=== PATIENT | male | born 1990 | race Caucasian/White ===

== ENCOUNTER 2022-12-14 04:19 | Emergency (ER) | payer BC, SELFPAY ==
[2022-12-14 04:35] VITALS: BP 137/83; PULSE 60; RESP 16; TEMP 36.6; O2SAT 100; BMI 38.4
--- NOTE | 2022-12-14 04:54 | CTR_ITS ---
PROCEDURE INFORMATION: Exam: CT Abdomen And Pelvis Without Contrast Exam date and time: 12/14/2022 5:06 AM Age: 32 years old Clinical indication: Abdominal pain; Localized; Right; Patient HX: C/O RT sided abd pain. ; Additional info: Right side pain TECHNIQUE: Imaging protocol: Computed tomography of the abdomen and pelvis without contrast. Radiation optimization: All CT scans at this facility use at least one of these dose optimization techniques: automated exposure control; mA and/or kV adjustment per patient size (includes targeted exams where dose is matched to clinical indication); or iterative reconstruction. REPORTING DATA: Count of CT and Cardiac NM exams in prior 12 months: This patient has received 0 known CTs and 0 known cardiac nuclear medicine studies in the 12 months prior to the current study. COMPARISON: No relevant prior studies available. RADIATION DOSE METRICS: Total DLP (mGy-cm): 1079.93 FINDINGS: Inferior thorax: No acute airspace or pleural disease. Asymmetric elevation of the right hemidiaphragm. Liver: Fatty infiltration of the liver. Gallbladder and bile ducts: Unremarkable gallbladder. Pancreas: No pancreatic mass or ductal dilatation. Spleen: Enlarged spleen measuring 12.4 cm in length. Accessory spleens. Adrenal glands: Unremarkable adrenals. Kidneys and ureters: Normal renal morphology. No hydronephrosis. Stomach and bowel: Prominent stool and diverticula, without pericolonic inflammation. Appendix: No acute appendicitis. Intraperitoneal space: No free fluid. Vasculature: Normal caliber of the abdominal aorta. Lymph nodes: Subcentimeter lymph nodes. Urinary bladder: Nondistended bladder with mild wall thickening. Reproductive: Unremarkable as visualized. Bones/joints: L5 spondylolysis. Schmorl's nodes and mild degenerative change. Soft tissues: Small umbilical hernia. CT/CT abdomen pelvis wo con [id number] IMPRESSION: 1. No acute inflammatory process in the abdomen or pelvis. 2. Additional findings as described above.
--- NOTE | 2022-12-14 04:54 | W.ED.ABDPA2 ---
HPI - Abdominal Pain General: Chief Complaint: Abdominal Pain Stated Complaint: abd pain Time Seen by Provider: 12/14/22 04:20 Source: patient Mode of arrival: ambulatory Limitations: no limitations History of Present Illness: 32-year-old male states he woke up this morning with a sharp right-sided flank and right-sided abdominal pain states the pain started roughly 2 to 3 AM he states pain is currently 7 out of 10 denies any vomiting denies any diarrhea denies any fever denies any dysuria he had history constipation but he states he had a bowel movement yesterday. Associated Symptoms: Denies chills and fever(s) Review of Systems Const: Denies: fever(s), chills, body aches or change in appetite Eyes: Denies: blurry vision or eye discomfort ENMT: Denies: throat pain or dental pain Card: Denies: chest pain Resp: Denies: dyspnea GI: Reports: abdominal pain : Reports: flank pain Musc: Denies: neck pain or back pain Skin/Breast: Denies: rash Neuro: Denies: headache(s) Psych: Denies: depression Poncho/Lymph: Denies: easy bruising All/Imm: Denies: urticaria PFSH ED PFSH: Medical History (Updated 12/14/22 @ 05:52 by Antione Alvares MD) No pertinent past medical history Social History (Updated 12/14/22 @ 04:56 by Antione Alvares MD) Substance/Drug Use: never Physical Exam Const: COMMON NORMALS: no acute distress, patient oriented x3 and healthy appearing HENMT: COMMON NORMALS: normocephalic and atraumatic HEAD & SCALP: normocephalic and atraumatic Eye: COMMON NORMALS: Equal, round and reactive pupils present and EOMs intact bilaterally PUPIL: Yes Equal, round and reactive pupils present Neck/C-Spine: COMMON NORMALS: full ROM and supple Chest: COMMONS NORMALS: normal inspection of the chest and normal palpation of entire chest wall Resp: COMMON NORMALS: normal respiratory effort, No retractions, No use of accessory muscles and clear to auscultation bilaterally AUSCULTATION: clear to auscultation bilaterally Cardio: COMMON NORMALS: regular rate, regular rhythm and No murmurs present (Cardio) RATE: regular rate RHYTHM: regular rhythm GI: COMMON NORMALS: Normal to inspection, nondistended, normoactive bowel sounds present, Soft to palpation, non-tender and no masses PALPATION: Yes Soft to palpation Extremity: COMMON NORMALS: normal to inspection and full ROM Neuro: COMMON NORMALS: patient oriented x3, moves all extremities and no focal motor deficits Psych: COMMON NORMALS: mental status grossly normal, Normal thought process present and cooperative THOUGHT PROCESS: Normal thought process present Skin: COMMON NORMALS: no rashes or lesions noted and no wounds GENERAL SKIN EXAM: no rashes or lesions noted Course Vital Signs: Vital signs: Vital Signs Temperature 97.9 F 12/14/22 04:35 Pulse Rate 60 12/14/22 04:35 Respiratory Rate 16 12/14/22 04:55 Blood Pressure 137/83 12/14/22 04:35 Pulse Oximetry 98 12/14/22 04:55 Oxygen Delivery Me thod 12/14/22 04:55 MDM - Abdominal Pain Medical Decision Making Patient presents here with abdominal pain he is well-appearing here CT scan blood works all normal he has had no dysuria his exam at discharge is benign he is to follow-up with PCP and return if worsening Lab Data 12/14/22 04:55 12/14/22 04:55 Labs/Radiology: Radiology Impressions Abdomen/Pelvis CT 12/14/22 04:54 IMPRESSION: 1. No acute inflammatory process in the abdomen or pelvis. 2. Additional findings as described above. Laboratory Results WBC 7.2 10^3/uL (4.0-10.0) 12/14/22 04:55 RBC 5.12 10^6/uL (4.1-5.3) 12/14/22 04:55 Hgb 15.0 g/dL (11.7-16.6) 12/14/22 04:55 Hct 45.5 % (42.0-52.0) 12/14/22 04:55 MCV 88.9 fl (80-94) 12/14/22 04:55 MCH 29.3 pg (28.0-34.0) 12/14/22 04:55 MCHC 33.0 g/dL (30.0-36.0) 12/14/22 04:55 RDW 12.5 % (12.1-15.1) 12/14/22 04:55 Plt Count 261 10^3/cmm (130-400) 12/14/22 04:55 MPV 10.0 fL (7.4-10.4) 12/14/22 04:55 Neut % (Auto) 68.9 % 12/14/22 04:55 Lymph % (Auto) 21.8 % 12/14/22 04:55 Scurry % (Auto) 6.7 % 12/14/22 04:55 Eos % (Auto) 1.7 % 12/14/22 04:55 Baso % (Auto) 0.6 % 12/14/22 04:55 Neut # (Auto) 4.95 10^3/uL (1.8-7.7) 12/14/22 04:55 Lymph # (Auto) 1.6 10^3/uL (0.8-4.8) 12/14/22 04:55 Scurry # (Auto) 0.5 10^3/uL (0.2-0.9) 12/14/22 04:55 Eos # (Auto) 0.1 10^3/uL (0.0-0.8) 12/14/22 04:55 Baso # (Auto) 0.0 10^3/uL (0.0-0.1) 12/14/22 04:55 Nucleated RBC % (auto) 0 % 12/14/22 04:55 Nucleated RBCs # 0.0 /100WBC 12/14/22 04:55 Sodium 145 mmol/L (136-145) 12/14/22 04:55 Potassium 3.5 mmol/L (3.5-5.1) 12/14/22 04:55 Chloride 106 mmol/L (98-107) 12/14/22 04:55 Carbon Dioxide 27 mmol/L (22-29) 12/14/22 04:55 Anion Gap 15.5 (5-19) 12/14/22 04:55 BUN 12 mg/dL (6-20) 12/14/22 04:55 Creatinine 0.9 mg/dL (0.7-1.2) 12/14/22 04:55 GFR Calculation 99.1 mL/min (90-130) 12/14/22 04:55 Glucose 112 mg/dL (65-115) 12/14/22 04:55 Calculated Osmolality 301 mOsm/kg (285-295) H 12/14/22 04:55 Calcium 9.2 mg/dL (8.5-10.5) 12/14/22 04:55 Total Bilirubin 0.8 mg/dL (0.15-1.2) 12/14/22 04:55 AST 52 U/L (0-40) H 12/14/22 04:55 ALT 45 U/L (0-41) H 12/14/22 04:55 Alkaline Phosphatase 78 U/L (40-130) 12/14/22 04:55 Total Protein 7.2 g/dL (6.6-8.7) 12/14/22 04:55 Albumin 4.2 g/dL (3.5-5.2) 12/14/22 04:55 Globulin 3.0 g/dL (1.3-4.6) 12/14/22 04:55 Lipase 48 U/L (13-60) 12/14/22 04:55 Discharge Plan Discharge Patient Disposition: Home Clinical Impression: Abdominal pain Discharge Orders: Discharge ED (Routine); Ordered 12/14/22 Ordered By: Antione Alvares Discharge Diet: Advance as tolerated Discharge Activity: Resume usual activity Patient Instructions: Abdominal Pain (ED) Coding Level of Care Code ED [employer] Supervisor for Kayleigh Carter
[2022-12-14 04:55] VITALS: RESP 16; O2SAT 98
[2022-12-14 05:09] LABS: Basophils % 0.6 %; Eosinophils # 0.1 10^3/uL (0.0-0.8); Eosinophils % 1.7 %; Hematocrit 45.5 % (42.0-52.0); Lymphocytes # 1.6 10^3/uL (0.8-4.8); Lymphocytes % 21.8 %; Mean Corpuscular Hemoglobin 29.3 pg (28.0-34.0); Mean Corpuscular Volume 88.9 fl (80-94); Monocytes # 0.5 10^3/uL (0.2-0.9); Monocytes % 6.7 %; Neutrophils # 4.95 10^3/uL (1.8-7.7); Neutrophils % 68.9 %; Nucleated Red Blood Cells % 0 %; Platelet Count 261 10^3/cmm (130-400); Red Blood Count 5.12 10^6/uL (4.1-5.3); Red Cell Distribution Width 12.5 % (12.1-15.1); White Blood Count 7.2 10^3/uL (4.0-10.0)
[2022-12-14] MEDS: morphine 4 mg/mL SDV 1 mL IVP (05:21)
[2022-12-14] MEDS: ondansetron 2 mg/ML SDV 2 mL 4 MG IVP (05:21)
[2022-12-14 05:28] LABS: Alanine Aminotransferase 45 U/L (0-41); Albumin Level 4.2 g/dL (3.5-5.2); Alkaline Phosphatase 78 U/L (40-130); Anion Gap 15.5 (5-19); Aspartate Amino Transferase 52 U/L (0-40); Blood Urea Nitrogen 12 mg/dL (6-20); Calcium 9.2 mg/dL (8.5-10.5); Carbon Dioxide 27 mmol/L (22-29); Chloride 106 mmol/L (98-107); Creatinine Clr Calc Pharmacy 152.0879; Glomerular Filtration Rate 99.1 mL/min (90-130); Glucose 112 mg/dL (65-115); Lipase 48 U/L (13-60); Osmolality Calculated 301 mOsm/kg (285-295); Potassium 3.5 mmol/L (3.5-5.1); Sodium 145 mmol/L (136-145); Total Bilirubin 0.8 mg/dL (0.15-1.2); Total Protein 7.2 g/dL (6.6-8.7)
[2022-12-14 06:06] VITALS: BP 121/78; PULSE 71; RESP 16; O2SAT 98
--- NOTE | 2022-12-25 13:50 | DCPLANNER ---
production control manager called patient due to no primary care physician - no answer at this time.
== END 2022-12-14 06:07 | disposition home or self-care (01) ==
PROVIDERS: Emergency Provider Emergency Medicine
DX: R10.9 Unspecified abdominal pain (principal)
CPT/HCPCS: 74176; 80053; 83690; 85025; 96374; 96375; 99285; J2270; J2405